=== PATIENT | female | born 1970 | race Caucasian/White ===

== ENCOUNTER 2024-11-15 21:09 | Inpatient (IN) | payer BC, OTHER ==
--- NOTE | 2024-11-15 21:51 | RAD REPORT ---
EXAM: Chest Single View HISTORY: CHEST PAIN COMPARISON: None. FINDINGS: LUNGS/PLEURA: Prominence of the pulmonary interstitium in the lung bases is nonspecific. No definite acute process identified.. MEDIASTINUM: The mediastinal silhouette is within normal limits. CARDIAC: The cardiac silhouette is within normal limits. UPPER ABDOMEN: No significant abnormality. BONES: No acute abnormality. LINES/TUBES/OTHER: N/A IMPRESSION: Some prominence of the basilar interstitial markings without definite edema or consolidative airspace disease.
[2024-11-15] MEDS ORDERED: NITROGLYCERIN 1 GM PKT TD ONE (22:21)
[2024-11-15 22:29] LABS: Absolute Basophils 0.1 K/uL (0-0.5); Absolute Eosinophils 0.3 K/uL (0-0.5); Absolute Lymphocytes (CBC) 2.8 K/uL (0.7-4.9); Absolute Monocytes 0.4 K/uL (0.1-1.3); Absolute Neutrophil 4.9 K/uL (1.8-8.0); Basophils % 0.8 % (0-1.3); Eosinophils % 3.7 % (0-4.4); Hematocrit 42.5 % (36.0-45.0); Hemoglobin 14.1 g/dL (12.0-15.0); Lymphocytes % 32.7 % (15.3-44.8); MCH 28.1 pg (27.0-35.0); MCHC 33.2 g/dL (32.0-36.0); MCV 84.6 fL (80-100); MPV 9.6 fL (7.6-11.3); Monocytes % 4.9 % (3.3-12.3); Neutrophils % 57.9 % (41.7-73.7); Nucleated Red Blood Cells % 0.2 % (0-0); Platelets 260 thou/uL (152-406); RBC Red Blood Cell Count 5.02 M/uL (3.86-4.86); Red Cell Distribution Width 13.4 % (12.1-15.2)
[2024-11-15 22:30] LABS: PTT, Activated Partial Thromb 34.6 SECONDS (24.3-36.9); Protime INR 0.95
[2024-11-15 22:36] LABS: ALT/SGPT 29 U/L (13-56); AST/SGOT 20 U/L (15-37); Albumin 3.2 g/dL (3.4-5.0); Albumin/Globulin Ratio 0.8 (1.1-1.8); Alkaline Phosphatase 94 U/L (45-117); Anion Gap 15.7 mEq/L (5.0-15.0); BUN Blood Urea Nitrogen 20 mg/dL (7-18); Bicarbonate 20 mEq/L (21-32); Bilirubin Total 0.6 mg/dL (0.2-1.0); Globulin 4.1 g/dL (2.3-3.5); Glomerular Filtration Rate 77 ml/min (=/>90); Glucose Level 203 mg/dL (74-106); Magnesium 1.5 mg/dL (1.6-2.4); NT PRO-BNP 131 pg/mL (<125); Potassium 3.7 mEq/L (3.5-5.1); Protein, Total 7.3 g/dL (6.4-8.2); Sodium Level 137 mEq/L (136-145); Troponin High Sensitivity 7.6 pg/mL (<58.9)
--- NOTE | 2024-11-15 22:40 | RAD REPORT ---
EXAMINATION: CT HEAD WITHOUT CONTRAST CLINICAL INDICATION: Female, 53 years old.HEADACHE TECHNIQUE: Axial CT images from the skull base to the vertex without intravenous contrast. Coronal an d sagittal reformatted images were created from the data set. One or more of the following dose reduction techniques were used: Automated exposure control, adjustment of the mA and/or kV according to patient size, and/or iterative reconstruction. Unless otherwise specified, incidental findings do not require dedicated imaging follow-up. [id number]. COMPARISON: No prior exam. FINDINGS: INTRACRANIAL: No acute intracranial hemorrhage. No hydrocephalus. No mass effect or midline shift. Sm all right centrum semiovale lacunar infarct.Small remote appearing left reinoso radiata lacunar infarct. Mild chronic small vessel ischemic changes. VASCULATURE: No visualized abnormalities in the arteries or dural venous sinuses. SCALP/SKULL: No significant soft tissue or osseous abnormalities. SINUSES: The visualized paranasal sinuses and mastoid air cells are predominantly clear. IMPRESSION: No definite acute intracranial abnormality. Probably remote deep white matter lacunar infarcts.
[2024-11-15 22:43] LABS: Bilirubin Direct < 0.2 mg/dL (0-0.2); Bilirubin Indirect, Calculated 0.4 mg/dL (0.2-0.8)
[2024-11-15] MEDS ORDERED: ASPIRIN 325 MG TAB ONE (23:14)
[2024-11-15] MEDS ORDERED: NITROGLYCERIN 0.4 MG/TAB SL ONE (23:14)
--- NOTE | 2024-11-15 23:17 | EDPHYS ---
Physician Documentation [facility] Name: Jaylin Carrera Age: 53 yrs Sex: Female : 1970 Arrival Date: 11/15/2024 Time: 21:09 Bed 4 Private MD: ED Physician Pilo Bowen HPI: 11/15 23:18 This 53 yrs old Female presents to ER via Ambulatory with complaints of Chest Pain, rt High Blood Pressure, Numbness Of Arm, Headache. 23:18 Patient presents to the ED with chest pain rating to left arm as well as a headache. rt Patient states that she had recent changes to her blood pressure medicines but states that blood pressure has been elevated, up to about 190 today. Denies loss of consciousness, other acute complaints at this time, symptoms are moderate in severity, no other aggravating elevating factors. Pain is described as pressure-like in nature.. 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 - Infectious Disease History:: Denies. - Social history:: Smoking status: Patient denies any tobacco usage or history of. - Family history:: not pertinent. ROS: 23:18 Constitutional: Negative for fever, chills, and weight loss, Respiratory: Negative for rt shortness of breath, cough, wheezing, and pleuritic chest pain, Abdomen/GI: Negative for abdominal pain, nausea, vomiting, diarrhea, and constipation, MS/Extremity: Negative for injury and deformity, 23:18 Cardiovascular: Positive for chest pain, Negative for edema, 23:18 Neuro: Positive for headache, Negative for altered mental status, Exam: 23:18 Constitutional: This is a well developed, well nourished patient who is awake, alert, rt and in no acute distress. Head/Face: Normocephalic, atraumatic. Chest/axilla: Normal chest wall appearance and motion. Nontender with no deformity. No lesions are appreciated. Cardiovascular: Regular rate and rhythm with a normal S1 and S2. No gallops, murmurs, or rubs. Normal PMI, no JVD. No pulse deficits. Respiratory: Lungs have equal breath sounds bilaterally, clear to auscultation and percussion. No rales, rhonchi or wheezes noted. No increased work of breathing, no retractions or nasal flaring. Abdomen/GI: Soft, non-tender, with normal bowel sounds. No distension or tympany. No guarding or rebound. No evidence of tenderness throughout. Skin: Warm, dry with normal turgor. Normal color with no rashes, no lesions, and no evidence of cellulitis. MS/ Extremity: Pulses equal, no cyanosis. Neurovascular intact. Full, normal range of motion. 23:18 ECG was reviewed by the Attending Physician. 23:18 Neuro: Speech normal, cranial nerves II through XII intact, strength and sensation intact in upper lower extremities, Vital Signs: 21:22 BP 228 / 119; Pulse 103; Resp 18; Temp 98.1; Pulse Ox 98% ; Weight 98.43 kg; Height 5 cp4 ft. 8 in. ; Pain 5/10; 21:30 BP 186 / 104; Pulse 90; Resp 18; Pulse Ox 97% on R/A; al5 22:03 BP 169 / 87; Pulse 90; Resp 18; Pulse Ox 97% on R/A; al5 22:30 BP 153 / 90; Pulse 90; Resp 18; Pulse Ox 98% on R/A; al5 23:00 BP 159 / 106; Pulse 92; Resp 18; Pulse Ox 97% on R/A; al5 11/16 00:00 BP 155 / 105; Pulse 98; Resp 18; Pulse Ox 96% on R/A; al5 00:30 BP 151 / 89; Pulse 96; Resp 18; Pulse Ox 95% on R/A; al5 01:00 BP 161 / 97; Pulse 92; Resp 18; Pulse Ox 98% on R/A; al5 11/15 21:22 Body Mass Index 32.99 (98.43 kg, 172.72 cm) cp4 11/15 21:22 Pain Scale: Adult cp4 MDM: 11/15 21:16 Medical Screening Exam initiated rt 23:20 Differential diagnosis: IA, hypertensive emergency, CHF, stones, renal dysfunction, rt intracranial hemorrhage. The patient was given aspirin in the Emergency Department. Data reviewed: vital signs, nurses notes, lab test result(s), EKG, radiologic studies. 23:34 Consideration of Admission/Observation Patient was admitted/placed on observation. rt Management of patient was discussed with the following: Hospitalist: Agrees to admit. I considered the following discharge prescriptions or medication management in the emergency department Medications were administered in the Emergency Department. See MAR. Independent interpretation of the following test(s) in the Emergency Department CT Scan: My interpretation is No intracranial hemorrhage syndrome interpretation of CT scan images. Care significantly affected by the following chronic conditions: Hypertension. Counseling: I had a detailed discussion with the patient and/or guardian regarding the historical points, exam findings, and any diagnostic results supporting the discharge/admit diagnosis, lab results, radiology results, the need for further work-up and treatment in the hospital. Response to treatment: the patient's symptoms have markedly improved after treatment. 11/15 21:28 Order name: Basic Metabolic Panel; Complete Time: 22:45 rt 11/15 21:28 Order name: CBC with Diff; Complete Time: 22:45 rt 11/15 21:28 Order name: LFT's; Complete Time: 22:45 rt 11/15 21:28 Order name: Magnesium; Complete Time: 22:45 rt 11/15 21:28 Order name: NT PRO-BNP; Complete Time: 22:45 rt 11/15 21:28 Order name: PT-INR; Complete Time: 22:45 rt 11/15 21:28 Order name: Troponin HS; Complete Time: 22:45 rt 11/15 21:28 Order name: Ptt, Activated; Complete Time: 22:45 rt 11/15 23:51 Order name: Urinalysis w/ reflexes EDMS 11/15 23:51 Order name: CBC with Automated Diff EDMS 11/15 23:51 Order name: CBC with Automated Diff EDMS 11/15 23:51 Order name: Comprehensive Metabolic Panel EDMS 11/15 23:51 Order name: Comprehensive Metabolic Panel EDMS 11/15 23:51 Order name: Troponin High Sensitivity EDMS 11/15 23:51 Order name: Troponin High Sensitivity EDMS 11/15 23:51 Order name: Troponin High Sensitivity EDMS 11/15 23:51 Order name: Troponin High Sensitivity EDMS 11/15 21:28 Order name: XRAY Chest (1 view); Complete Time: 21:51 rt 11/15 21:28 Order name: CT Head Brain wo Cont; Complete Time: 22:45 rt 11/16 00:44 Order name: Chest For Pe Angio EDMS 11/15 21:28 Order name: Cardiac monitoring; Complete Time: 21:56 rt 11/15 21:28 Order name: EKG - Nurse/Tech; Complete Time: :56 rt 11/15 21:28 Order name: IV Saline Lock; Complete Time: 22:12 rt 11/15 21:28 Order name: Labs collected and sent; Complete Time: 22:12 rt 11/15 21:28 Order name: O2 Per Protocol; Complete Time: 21:56 rt 11/15 21:28 Order name: O2 Sat Monitoring; Complete Time: 21:56 rt EC:18 Rate is 92 beats/min. Rhythm is regular, Normal Sinus Rhythm with No ectopy. QRS [place] rt is Normal. MD interval is normal. QRS interval is normal. QT interval is normal. No Q waves. No ST changes noted. Interpreted by me. Administered Medications: 22:59 Not Given (Duplicate Order): nitroglycerinointment 2 % 1 inches Transdermal once rt 23:28 Drug: Nitroglycerin Sublingual 0.4 mg Sublingual once; every five minute if needed x3 al5 Route: Sublingual; 11/16 00:00 Follow up: Response: No adverse reaction ha1 11/15 23:28 Drug: Aspirin PO 325 mg PO once Route: PO; al5 11/16 00:00 Follow up: Response: No adverse reaction ha1 Disposition: 11/15 23:34 Critical Care:. rt Disposition Summary: 11/15/24 23:16 Hospitalization Ordered Notes: Hospitalization Status: Observation rt Provider: Tyron Stewart rt Location: Telemetry/MedSurg (observation) rt Condition: Stable rt Problem: new rt Symptoms: have improved rt Bed/Room Type: Standard rt Room Assignment: 230(11/16/24 00:07) Diagnosis - Hypertensive emergency rt - Chest pain rt Forms: - Medication Reconciliation Form rt - SBAR form rt - Leadership Thank You Letter rt Critical care time excluding procedures: 23:34 Critical care time: Bedside Care: 30 minutes, Consultation: 5 minutes. Total time: 35 rt minutes Signatures: Dispatcher [employer] Pilo Everett MD MD rt April Hood cp4 Aimee Long RN RN al5 [place] Keely Holt RN ha1 Corrections: (The following items were deleted from the chart) : 21:29 BASIC METABOLIC PANEL+C.LAB.BRZ ordered. EDMS EDMS 21:29 CBC+H.LAB.BRZ ordered. EDMS EDMS 21:29 HEPATIC FUNCTION+C.LAB.BRZ ordered. EDMS EDMS : 21:29 MAGNESIUM+C.LAB.BRZ ordered. EDMS EDMS : 21:29 PROBNP+C.LAB.BRZ ordered. EDMS EDMS 21:29 PROTIME (+INR)+COAG.LAB.BRZ ordered. EDMS EDMS 21:29 Troponin High Sensitivity+C.LAB.BRZ ordered. EDMS EDMS 21:29 PTT, ACTIVATED+COAG.LAB.BRZ ordered. EDMS EDMS 21:29 Chest Single View+RAD.RAD.BRZ ordered. EDMS EDMS : 21:29 Head Brain Wo Cont+CT.RAD.BRZ ordered. EDMS EDMS 11/16 00:07 11/15 23:16 rt hw 11/16 00:44 11/15 23:52 Chest For Pe Angio ordered. EDMS EDMS
--- NOTE | 2024-11-15 23:17 | ER ---
Nurse's Notes [facility] Name: Jaylin Carrera Age: 53 yrs Sex: Female : 1970 Arrival Date: 11/15/2024 Time: 21:09 Bed 4 Private MD: Diagnosis: Hypertensive emergency;Chest pain Presentation: 11/15 21:22 Chief complaint: Patient states: hypertension, left arm numbness, headache, shortness cp4 of breath, and chest pain that started at 1500 today. Coronavirus screen: Client denies travel out of the [place] in the last 14 days. At this time, the client does not indicate any symptoms associated with coronavirus-19. Ebola Screen: Patient negative for fever greater than or equal to 101.5 degrees Fahrenheit, and additional compatible Ebola Virus Disease symptoms Patient denies exposure to infectious person. Patient denies travel to an Ebola-affected area in the 21 days before illness onset. No symptoms or risks identified at this time. Initial Sepsis Screen: Does the patient meet any 2 criteria? HR > 90 bpm. No. Patient's initial sepsis screen is negative. Does the patient have a suspected source of infection? No. Patient's initial sepsis screen is negative. Risk Assessment: Do you want to hurt yourself or someone else? Patient reports no desire to harm self or others. Onset of symptoms was November 15, 2024 at 15:00. 21:22 Method Of Arrival: Ambulatory cp4 21:22 Acuity: JERICA 2 cp4 Triage Assessment: 21:24 General: Appears in no apparent distress. uncomfortable, Behavior is calm, cooperative, cp4 appropriate for age. Pain: Complains of pain in chest, head. Cardiovascular: Patient's skin is warm and dry. 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 - Infectious Disease History:: Denies. - Social history:: Smoking status: Patient denies any tobacco usage or history of. - Family history:: not pertinent. Screenin:16 [facility] ED Fall Risk Assessment (Adult) History of falling in the last 3 months, al5 including since admission No falls in past 3 months (0 pts) Confusion or Disorientation No (0 pts) Intoxicated or Sedated No (0 pts) Impaired Gait No (0 pts) Mobility Assist Device Used No (0 pt) Altered Elimination No (0 pt) Score/Fall Risk Level 0 - 2 = Low Risk Oriented to surroundings, Maintained a safe environment, Hourly rounding (assess needs \T\ fall precautionary measures) done. Abuse screen: Denies threats or abuse. Denies injuries from another. Nutritional screening: No deficits noted. Tuberculosis screening: No symptoms or risk factors identified. Assessment: 22:16 General: Appears in no apparent distress. uncomfortable, Behavior is calm, cooperative. al5 Pain: Complains of pain in chest Pain radiates to left arm Pain began 1 hour ago. chest pain began about 3 hours ago. Neuro: Level of Consciousness is awake, alert, obeys commands, Oriented to person, place, time, situation. Cardiovascular: Capillary refill < 3 seconds Patient's skin is warm and dry. Cardiovascular: Reports chest pain. Respiratory: Airway is patent Respiratory effort is even, unlabored, Respiratory pattern is regular, symmetrical. GI: No signs and/or symptoms were reported involving the gastrointestinal system. : No signs and/or symptoms were reported regarding the genitourinary system. EENT: No signs and/or symptoms were reported regarding the EENT system. Derm: Skin is intact, is healthy with good turgor, Skin is pink, warm \T\ dry. normal. Musculoskeletal: No signs and/or symptoms reported regarding the musculoskeletal system. 23:58 Reassessment: Patient appears in no apparent distress at this time. No changes from al5 previously documented assessment. Patient and/or family updated on plan of care and expected duration. Pain level reassessed. Patient is alert, oriented x 3, equal unlabored respirations, skin warm/dry/pink. 11/16 00:41 Reassessment: Patient appears in no apparent distress at this time. No changes from al5 previously documented assessment. Patient and/or family updated on plan of care and expected duration. Pain level reassessed. Patient is alert, oriented x 3, equal unlabored respirations, skin warm/dry/pink. Vital Signs: 11/15 21:22 BP 228 / 119; Pulse 103; Resp 18; Temp 98.1; Pulse Ox 98% ; Weight 98.43 kg; Height 5 cp4 ft. 8 in. ; Pain 5/10; 21:30 BP 186 / 104; Pulse 90; Resp 18; Pulse Ox 97% on R/A; al5 22:03 BP 169 / 87; Pulse 90; Resp 18; Pulse Ox 97% on R/A; al5 22:30 BP 153 / 90; Pulse 90; Resp 18; Pulse Ox 98% on R/A; al5 23:00 BP 159 / 106; Pulse 92; Resp 18; Pulse Ox 97% on R/A; al5 11/16 00:00 BP 155 / 105; Pulse 98; Resp 18; Pulse Ox 96% on R/A; al5 00:30 BP 151 / 89; Pulse 96; Resp 18; Pulse Ox 95% on R/A; al5 01:00 BP 161 / 97; Pulse 92; Resp 18; Pulse Ox 98% on R/A; al5 11/15 21:22 Body Mass Index 32.99 (98.43 kg, 172.72 cm) cp4 11/15 21:22 Pain Scale: Adult cp4 ED Course: 11/15 21:13 Patient arrived in ED. [id number] 21:15 Pilo Bowen MD is Attending Physician. rt 21:24 Triage completed. cp4 21:24 Arm band placed on right wrist. Patient placed in waiting room. cp4 21:47 XRAY Chest (1 view) In Process Unspecified. EDMS 21:56 Aimee Long, BRAYDEN is Primary Nurse. al5 22:16 Patient has correct armband on for positive identification. Bed in low position. Call al5 light in reach. Side rails up X 1. Provided Education on: plan of care. Client placed on continuous cardiac and pulse oximetry monitoring. NIBP monitoring applied. manager monitoring on. 22:16 No provider procedures requiring assistance completed. Inserted saline lock: 22 gauge al5 in left forearm, using aseptic technique. Blood collected. Flushed with 10 mL NS. Patient maintains SpO2 saturation greater than 95% on room air. 22:27 CT Head Brain wo Cont In Process Unspecified. EDMS 23:15 Tyron Stewart MD is Hospitalizing Provider. rt 11/16 01:19 Patient admitted, IV remains in place. ha1 Administered Medications: 11/15 22:59 Not Given (Duplicate Order): nitroglycerinointment 2 % 1 inches Transdermal once rt 23:28 Drug: Nitroglycerin Sublingual 0.4 mg Sublingual once; every five minute if needed x3 al5 Route: Sublingual; 11/16 00:00 Follow up: Response: No adverse reaction ha1 11/15 23:28 Drug: Aspirin PO 325 mg PO once Route: PO; al5 11/16 00:00 Follow up: Response: No adverse reaction ha1 Medication: 11/15 22:16 VIS not applicable for this client. al5 Outcome: 23:16 Decision to Hospitalize by Provider. rt 11/16 01:19 Admitted to Med/surg accompanied by tech, via wheelchair, room 230, with chart, ha1 Condition: stable Instructed on the need for admit, Demonstrated understanding of instructions, 01:21 Patient left the ED. ha1 Signatures: Dispatcher [employer] EDJaylin Mcneal6 Keely Holt, RN RN ha1 Pilo Bowen MD MD rt April Hood cp4 Aimee Long RN RN al5
--- NOTE | 2024-11-15 23:51 | P.HP ---
Certification for Inpatient Patient admitted to: Observation With expected LOS: <2 Midnights Practitioner: I am a practitioner with admitting privileges, knowledge of patient current condition, hospital course, and medical plan of care. Services: Services provided to patient in accordance with Admission requirements found in Title 42 Section 412.3 of the Code of Federal Regulations Patient History Date of Service: 11/16/24 Reason for admission: Chest Pain History of Present Illness: 53 yrs old Female with past medical history of diabetes, hypertension presents with complaints of Chest Pain and high Blood Pressure. Patient states that she had recent changes in the blood pressure medications but still the blood pressure has been elevated up to 190s, denies any loss of consciousness. Chest pain is located retrosternally and radiating to the left arm. No fever or chills. Denies any diaphoresis. Denies any nausea vomiting or diarrhea. At the time of interview patient's pain is better. She also complains of some numbness of the left arm and headache. Patient was assessed in the ER and had a CT of the head which showed no acute changes with remote lacunar infarct, patient is being admitted for further management of chest pain to rule out ACS and accelerated hypertension Allergies No Known Allergies Allergy (Unverified 11/16/24 01:29) Home medications list reviewed: Yes Home Medications: Lisinopril [Zestril] 40 mg PO DAILY 11/16/24 Metformin HCl 1,000 mg PO BID 11/16/24 Metoprolol Succinate [Toprol Xl] 50 mg PO DAILY 11/16/24 Tirzepatide [Mounjaro] 2.5 mg SQ SEECOM 11/16/24 glipiZIDE [Glipizide] 10 mg PO BID 11/16/24 - Past Medical/Surgical History Past Medical History: Reviewed- Non-Contributory -: Hypertension, diabetes Past Surgical History: Reviewed- Non-Contributory - Family History Family History: Reviewed- Non-Contributory - Social History Smoking Status: Never smoker Review of Systems 10-point ROS is otherwise unremarkable Physical Examination - Vital Signs Temperature: 98.1 F Blood Pressure: 228/118 Pulse: 103 Respirations: 18 Pulse Ox (%): 94 - Physical Exam General: Alert, In no apparent distress, Oriented x3 HEENT: Atraumatic, Normocephalic Neck: Supple, JVD not distended Respiratory: Clear to auscultation bilaterally, Normal air movement Cardiovascular: Regular rate/rhythm, Normal S1 S2 Capillary refill: <2 Seconds Gastrointestinal: Soft and benign, W/out hepatosplenomegaly Musculoskeletal: No clubbing, No swelling Integumentary: No rashes Neurological: Normal speech, Normal strength at 5/5 x4 extr, Cranial nerves 3-12 intact Lymphatics: No axilla or inguinal lymphadenopathy - Studies Laboratory Data (last 24 hrs) 11/15/24 11/15/24 11/15/24 21:42 21:42 21:42 WBC 8.40 Hgb 14.1 Hct 42.5 Plt Count 260 PT 10.0 INR 0.95 APTT 34.6 Sodium 137 Potassium 3.7 BUN 20 H Creatinine 0.89 Glucose 203 H Magnesium 1.5 L Total Bilirubin 0.6 AST 20 ALT 29 Alkaline Phosphatase 94 Assessment and Plan - Plan Chest pain to rule out ACS Will trend cardiac enzymes Will monitor telemetry Started on aspirin and statin EKG did not show any acute changes suggestive of ischemia Patient denies any chest pain at the time of interview Will get an echocardiogram Cardiology consult Will get a CT of the chest rule out PE Hypertensive urgency Antihypertensives titrated Continue home medications and titrate as needed Hydralazine as needed Hyperlipidemia Continue statin Diabetes Insulin sliding scale Accu-Chek before every meal and at bedtime Hypomagnesemia On electrolyte replacement protocol GI/DVT prophylaxis Advanced directive full code Discharge Plan: Home Plan to discharge in: 48 Hours - Advance Directives Does patient have a Living Will: No Does patient have a Durable POA for Healthcare: No - Code Status/Comfort Care Code Status: Full Code Time Spent Managing Pts Care (In Minutes): 48
[2024-11-16 01:37] VITALS: BMI 33.4
[2024-11-16] MEDS: HYDRALAZINE HCL 20 MG/ML VIAL IV PRN (01:44)
[2024-11-16 04:48] LABS: Absolute Basophils 0.1 K/uL (0-0.5); Absolute Eosinophils 0.2 K/uL (0-0.5); Absolute Lymphocytes (CBC) 1.6 K/uL (0.7-4.9); Absolute Monocytes 0.5 K/uL (0.1-1.3); Absolute Neutrophil 5.3 K/uL (1.8-8.0); Basophils % 0.7 % (0-1.3); Eosinophils % 2.6 % (0-4.4); Hematocrit 40.2 % (36.0-45.0); Hemoglobin 13.4 g/dL (12.0-15.0); Lymphocytes % 20.9 % (15.3-44.8); MCH 27.9 pg (27.0-35.0); MCHC 33.3 g/dL (32.0-36.0); MPV 9.4 fL (7.6-11.3); Monocytes % 6.6 % (3.3-12.3); Neutrophils % 69.2 % (41.7-73.7); Nucleated Red Blood Cells % 0.1 % (0-0); Platelets 225 thou/uL (152-406); RBC Red Blood Cell Count 4.79 M/uL (3.86-4.86); Red Cell Distribution Width 13.7 % (12.1-15.2)
[2024-11-16] MEDS ORDERED: GLUCAGON 1 MG/VIAL IM PRN (04:48)
[2024-11-16] MEDS: AMLODIPINE 5 MG TAB PO SCH (04:48)
[2024-11-16] MEDS: carvediloL 6.25 MG TAB PO SCH (04:48)
[2024-11-16] MEDS ORDERED: D10W 125 ML IV PRN (04:48)
[2024-11-16 05:10] LABS: Albumin 2.7 g/dL (3.4-5.0); Albumin/Globulin Ratio 0.8 (1.1-1.8); Anion Gap 11.6 mEq/L (5.0-15.0); Bilirubin Total 0.6 mg/dL (0.2-1.0); Globulin 3.6 g/dL (2.3-3.5); Potassium 3.6 mEq/L (3.5-5.1); Protein, Total 6.3 g/dL (6.4-8.2)
[2024-11-16] MEDS: Magnesium Sulfate 2gm IVPB 2 G/50 ML BAG IV ONE (05:50)
--- NOTE | 2024-11-16 08:15 | RAD REPORT ---
EXAM: CT Chest For Pe Angio TECHNIQUE: CT angiogram of the chest was performed following intravenous contrast administration, inc luding sagittal and coronal as well as maximum intensity projection reformats. One or more of the following dose reduction techniques were used: Automated exposure control, adjustment of the mA and k V according to patient size, and iterative reconstruction. Unless otherwise specified, incidental findings do not require dedicated imaging follow-up. INDICATION: [facility] MA[facility] PE protocol Y COMPARISON: 11/15/2024 chest radiograph. FINDINGS: LINES/TUBES: None. PULMONARY ARTERIES: Main pulmonary arteries are normal in caliber. No filling defects within the pul monary arteries to suggest pulmonary embolus. LUNGS AND AIRWAYS: The lungs and central airways are normal without focal abnormality. PLEURA: No effusion or pneumothorax. HEART AND MEDIASTINUM: The visualized thyroid gland is normal. No mediastinal, hilar, or axillary lym phadenopathy. Heart is unremarkable. No pericardial effusion. SOFT TISSUES AND BONES: No acute osseous abnormality. No significant soft tissue finding. UPPER ABDOMEN: Diffuse hepatic parenchymal hypoattenuation suggesting steatosis. IMPRESSION: No evidence of acute central pulmonary emboli. No suspicious intrathoracic findings..
[2024-11-16] MEDS: INSULIN REGULAR (HUMAN) 100 UNIT/ML SQ SCH (08:26)
[2024-11-16] MEDS: ASPIRIN EC 81 MG TAB PO SCH (08:26)
[2024-11-16] MEDS: METOPROLOL XL 50 MG TAB PO SCH (08:27)
[2024-11-16] MEDS: lisinopriL 20 MG TAB PO SCH (08:27)
[2024-11-16] MEDS: ENOXAPARIN 40 MG/0.4 ML SQ SCH (08:27)
[2024-11-16] MEDS: POTASSIUM CL SA 10 MEQ TAB PO ONE (08:27)
[2024-11-16] MEDS: ACETAMINOPHEN 325 MG TABLET PO PRN (08:32)
[2024-11-16] MEDS ORDERED: LOSARTAN POTASSIUM 50 MG TABLET PO SCH (09:00)
--- NOTE | 2024-11-16 09:11 | P.PN ---
Date of Service: 11/16/24 Subjective: Blood pressure high overnight Reports chest pain/dyspnea on exertion ROS: 10 point ROS as noted above, otherwise negative Physical exam GEN: Alert, oriented, NAD HEENT: Normal conjunctiva, sclera anicteric CV: Regular rate and rhythm, no edema Pulm: Nonlabored respirations on room air ABD: Soft, nontender, nondistended MSK: No joint tenderness Integumentary: No rashes Neuro: Normal speech, normal affect Vitals reviewed Assessment: Chest tightness/dyspnea on exertion Hypertensive urgency with underlying primary hypertension Diabetes mellitus type [id number] Plan: Chest tightness/dyspnea on exertion Hypertensive urgency with underlying primary hypertension Recently had her dose increased on her metoprolol succinate and lisinopril Currently taking lisinopril 40 mg daily and metoprolol succinate 50 mg daily Monitor blood pressure throughout hospitalization, adjust medications as necessary First 2 troponins negative Reports over the last month increasing frequency of dyspnea on exertion/tightness Mother has a history of CAD, patient used to smoke and has a history of diabetes and hypertension Has never had catheter echo/stress cardiology to see patient Diabetes mellitus type [id number] ACHS Accu-Chek, sliding scale insulin Recently started on Mounjaro DVT PPX: Lovenox Code status: Mussel Farmer Spent Managing Pts Care (In Minutes): 35
[2024-11-16 11:10] LABS: Magnesium 1.9 mg/dL (1.6-2.4); Troponin High Sensitivity 22.4 pg/mL (<58.9)
[2024-11-16] MEDS: ONDANSETRON 4 MG/2 ML VIAL IV PRN (12:34)
[2024-11-16 21:31] LABS: Specific Gravity 1.022 (1.005-1.030); Sqamous Epithelial <5 /HPF (None Seen); Urine Bacteria None Seen /HPF (<20); Urine Bilirubin NEGATIVE (Negative); Urine Blood Negative (Negative); Urine Clarity Clear (Clear); Urine Color Light-Yellow (Yellow); Urine Culture Reflex Order NOT NEEDED; Urine Glucose 4+ (Over) (Negative); Urine Ketones NEGATIVE (Negative); Urine Microscopic Reflex YN ORDER UMIC; Urine Mucus Slight /HPF (None Seen); Urine Nitrite NEGATIVE (Negative); Urine Protein 2+ (Negative); Urine RBC <5 /HPF (None Seen); Urine Urobilinogen Normal (Normal); Urine WBC <5 /HPF (<5); Urine pH 5.5 (5.0-7.0)
[2024-11-16] MEDS: ATORVASTATIN 40 MG TAB PO SCH (21:44)
[2024-11-17 07:41] VITALS: O2SAT 96
[2024-11-17] MEDS ORDERED: REGADENOSON 0.4 MG/5 ML SYR IV ONE (09:44)
--- NOTE | 2024-11-17 10:51 | RAD REPORT ---
EXAM: Nuclear medicine cardiac perfusion examination with ejection fraction HISTORY: Chest pain CP TECHNIQUE: Rest images: 10.9 mCi technetium 99m sestamibi Stress images: 31.1 mCi of technetium 99m sestamibi COMPARISON: None. FINDINGS: Tomographic images: No fixed or reversible perfusion defects. No finding to suspect hibernating myocardium. Ejection fraction of 68%. EDV: 69 mL ESV: 22 mL LHR: 0.27 TID: 1.1 IMPRESSION: No evidence of stress induced ischemia.
--- NOTE | 2024-11-17 13:06 | P.CNS ---
Date of Consult: 11/17/24 Chief Complaint: Chest Pain History of Present Illness: Patient with PMH of HTN, DM, presented with occasional chest pain, epigastric and lower mid chest, on/off, no other cardiac symptoms. Allergies No Known Allergies Allergy (Unverified 11/16/24 01:29) Home medications list reviewed: Yes Home Medications: Lisinopril [Zestril] 40 mg PO DAILY 11/16/24 Metformin HCl 1,000 mg PO BID 11/16/24 Metoprolol Succinate [Toprol Xl] 50 mg PO DAILY 11/16/24 Tirzepatide [Mounjaro] 2.5 mg SQ SEECOM 11/16/24 glipiZIDE [Glipizide] 10 mg PO BID 11/16/24 - Past Medical/Surgical History Diabetic: Yes -: Hypertension, diabetes -: dm - Social History Place of Residence: Home Review of Systems 10-point ROS is otherwise unremarkable Physical Examination Temp Pulse Resp BP Pulse Ox 98.2 F 100 H 16 146/82 H 96 11/17/24 08:00 11/17/24 08:00 11/17/24 08:00 11/17/24 08:00 11/17/24 08:00 General: Alert, In no apparent distress HEENT: Atraumatic, PERRLA, Mucous membr. moist/pink, EOMI, Sclerae nonicteric Neck: Supple, 2+ carotid pulse no bruit, No LAD, Without JVD or thyroid abnormality Respiratory: Clear to auscultation bilaterally, Normal air movement Cardiovascular: Regular rate/rhythm, Normal S1 S2 Gastrointestinal: Normal bowel sounds, No tenderness Musculoskeletal: No tenderness Integumentary: No rashes Neurological: Normal gait, Normal speech, Normal tone, Normal affect Lymphatics: No axilla or inguinal lymphadenopathy - Problems (1) Chest pain Current Visit: Yes Status: Acute Plan: cardiac enzymes are negative, patient had a stress test that is negative for ischemia. continue to control BP and BS outpatient follow up with cardiology.
[2024-11-17 13:27] VITALS: BP 155/81; TEMP 97.8
--- NOTE | 2024-11-17 14:17 | P.DS ---
Admission Date: 11/16/24 Discharge Date: 11/17/24 Disposition: ROUTINE DISCHARGE Discharge Condition: GOOD Reason for Admission: Chest Pain Consultations: Cardiology:Dr. Booker/Dr. Randall Brief History of Present Illness: 53 yrs old Female with past medical history of diabetes, hypertension presents with complaints of Chest Pain and high Blood Pressure. Patient states that she had recent changes in the blood pressure medications but still the blood pressure has been elevated up to 190s, denies any loss of consciousness. Chest pain is located retrosternally and radiating to the left arm. No fever or chills. Denies any diaphoresis. Denies any nausea vomiting or diarrhea. At the time of interview patient's pain is better. She also complains of some numbness of the left arm and headache. Patient was assessed in the ER and had a CT of the head which showed no acute changes with remote lacunar infarct, patient is being admitted for further management of chest pain to rule out ACS and accelerated hypertension Hospital Course: Patient was admitted to the hospital for chest pain, dyspnea on exertion and elevated blood pressure. She had a CTA of the chest which was negative for PE or any other acute finding. Troponins were negative x 3, no significant events on telemetry. Cardiology was consulted recommend she undergo stress test. Stress test was performed on 11/17 which showed no evidence of stress-induced ischemia. Echocardiogram was also obtained, results are currently pending. additional lab values-CBC within normal limits x 2, creatinine 0.82 GFR 85 sodium 135 potassium 3.6 chloride 105 bicarb 22 glucose in the 200s throughout hospitalization LFTs within normal limits Initially her blood pressure was very elevated in the ER as high as 228/119, her home medications included metoprolol succinate 50 mg and lisinopril 40 mg daily were continued and her blood pressure has improved today has been in the 140s to 150s systolic. Of note her PCP sent a prescription of amlodipine 5 mg daily to her pharmacy before she came to the hospital, she was instructed to meat pickler this medication and begin taking it tomorrow morning. She has appointment follow-up with her primary care doctor on the which she should keep, also recommend following up with cardiology in 1 to 2 weeks. Continue taking other medications as previously prescribed Assessment: Chest tightness/dyspnea on exertion Hypertensive urgency with underlying primary hypertension Diabetes mellitus type [id number] Vital Signs/Physical Exam: Temp Pulse Resp BP Pulse Ox 97.8 F 95 H 16 155/81 H 98 11/17/24 12:00 11/17/24 12:00 11/17/24 12:00 11/17/24 12:00 11/17/24 12:00 General: Alert, In no apparent distress, Oriented x3 HEENT: Atraumatic, PERRLA Neck: Supple, JVD not distended Respiratory: Clear to auscultation bilaterally, Normal air movement Cardiovascular: Regular rate/rhythm, Normal S1 S2 Gastrointestinal: Normal bowel sounds, No tenderness Musculoskeletal: No tenderness Integumentary: No rashes Neurological: Normal speech Laboratory Data at Discharge: WBC 7.60 thou/uL (4.3-10.9) 11/16/24 04:14 Hgb 13.4 g/dL (12.0-15.0) 11/16/24 04:14 Hct 40.2 % (36.0-45.0) 11/16/24 04:14 Plt Count 225 thou/uL (152-406) 11/16/24 04:14 PT 10.0 SECONDS (9.4-12.5) 11/15/24 21:42 INR 0.95 11/15/24 21:42 APTT 34.6 SECONDS (24.3-36.9) 11/15/24 21:42 Sodium 135 mEq/L (136-145) L 11/16/24 04:14 Potassium 3.6 mEq/L (3.5-5.1) 11/16/24 04:14 BUN 20 mg/dL (7-18) H 11/16/24 04:14 Creatinine 0.82 mg/dL (0.55-1.02) 11/16/24 04:14 Glucose 240 mg/dL (74-106) H 11/16/24 04:14 Magnesium 1.9 mg/dL (1.6-2.4) 11/16/24 10:41 Total Bilirubin 0.6 mg/dL (0.2-1.0) 11/16/24 04:14 AST 20 U/L (15-37) 11/16/24 04:14 ALT 25 U/L (13-56) 11/16/24 04:14 Alkaline Phosphatase 81 U/L (45-117) 11/16/24 04:14 Home Medications: Lisinopril [Zestril] 40 mg PO DAILY 11/16/24 Metformin HCl 1,000 mg PO BID 11/16/24 Metoprolol Succinate [Toprol Xl] 50 mg PO DAILY 11/16/24 Tirzepatide [Mounjaro] 2.5 mg SQ SEECOM 11/16/24 glipiZIDE [Glipizide] 10 mg PO BID 11/16/24 Physician Discharge Instructions: Patient was admitted to the hospital for chest pain, dyspnea on exertion and elevated blood pressure. She had a CTA of the chest which was negative for PE or any other acute finding. Troponins were negative x 3, no significant events on telemetry. Cardiology was consulted recommend she undergo stress test. Stress test was performed on 11/17 which showed no evidence of stress-induced ischemia. Echocardiogram was also obtained, results are currently pending. additional lab values-CBC within normal limits x 2, creatinine 0.82 GFR 85 sodium 135 potassium 3.6 chloride 105 bicarb 22 glucose in the 200s throughout hospitalization LFTs within normal limits Initially her blood pressure was very elevated in the ER as high as 228/119, her home medications included metoprolol succinate 50 mg and lisinopril 40 mg daily were continued and her blood pressure has improved today has been in the 140s to 150s systolic. Of note her PCP sent a prescription of amlodipine 5 mg daily to her pharmacy before she came to the hospital, she was instructed to meat pickler this medication and begin taking it tomorrow morning. She has appointment follow-up with her primary care doctor on the which she should keep, also recommend following up with cardiology in 1 to 2 weeks. Continue taking other medications as previously prescribed Diet: AHA Activity: Ad demetrius Followup: Conrad Booker MD [ACTIVE - CAN ADMIT] - 1-2 Weeks John Serra DO [Primary Care Provider] - 1 Week Time spent managing pt's care (in minutes): 41
--- NOTE | 2024-11-19 08:15 | ECHO ---
HEIGHT: 5 ft 8 in WEIGHT: 220 lb 0 oz DATE OF STUDY: 11/17/[address]: Pj Stewart DO 2-DIMENSIONAL: YES M.MODE: YES DOPPLER: YES COLOR FLOW: YES TDS: NO PORTABLE: YES DEFINITY: NO BUBBLE STUDY: NO DIAGNOSIS: CHEST PAIN CARDIAC HISTORY: CATHERIZATION: NO SURGERY: NO PROSTHETIC VALVE: NO PACEMAKER: NO MEASUREMENTS (cm) DIASTOLIC (NORMALS) SYSTOLIC (NORMALS) IVSd 1.1 (0.6-1.2) LA Diam 2.3 (1.9-4.0) LVEF 60-65% LVIDd 3.8 (3.5-5.7) LVIDs 2.0 (2.0-3.5) %FS 46% LVPWd 1.2 (0.6-1.2) Ao Diam 2.5 (2.0-3.7) 2 DIMENSIONAL ASSESSMENT: RIGHT ATRIUM: NORMAL LEFT ATRIUM: NORMAL RIGHT VENTRICLE: NORMAL LEFT VENTRICLE: NORMAL TRICUSPID VALVE: NORMAL MITRAL VALVE: NORMAL PULMONIC VALVE: NORMAL AORTIC VALVE: NORMAL PERICARDIAL EFFUSION: NONE AORTIC ROOT: NORMAL LEFT VENTRICULAR WALL MOTION: NORMAL. DOPPLER/COLOR FLOW: NORMAL. COMMENTS: 1.NORMAL LEFT VENTRICULAR SYSTOLIC FUNCTION, EJECTION FRACTION 60-65%, NORMAL WALL MOTION. 2. NORMAL DIASTOLIC FUNCTION. TECHNOLOGIST: CELESTE KAUFFMAN
--- NOTE | 2024-11-19 08:40 | TREADPHA ---
DX: CHEST PAIN Date of Study: 11/17/24 Ht: 5' 8 " Wt: 220 lb 0 oz Consulting Physician: TOM MEDICATIONS: LOVENOX, APRESOLINE, DEXTROSE, NOVOLIN R, PRINIVIL, TOPROL, ZOFRAN HISTORY: DIABETES MELLITUS, HYPERTENSION, HYPERLIPIDEMIA PHYSICIAL EXAMINATION: RESTING B.P.: 158/90 RESTING H.R.: 94 RESTING EKG: NORMAL SINUS PROTOCOL: LEXISCAN EXERCISE TIME: 3:30 B.P. AT PEAK STRESS: 183/93 IMPRESSION: LEXISCAN INJECTED. CARDIOLITE INJECTED - SEE NUCLEAR MEDICINE REPORT. NO CHEST PAIN. ST RHYTHM - 130S. DIZZY AND SHORT OF REATH WITH HEADACHE.
--- NOTE | 2024-11-20 13:07 | EKG ---
Test Date: 2024-11-15 Test Time: 21:31:19 Line Rider: GRICELDA MEASUREMENT RESULTS: Intervals: Rate: 92 MT: 182 QRSD: 82 QT: 396 QTc: 489 [place]: P: 55 MT: 182 QRS: 56 T: 78 INTERPRETIVE STATEMENTS: Normal sinus rhythm Anterior infarct, age undetermined Abnormal ECG No previous ECG available for comparison Electronically Signed On 11-20-24 13:01:52 DIE PRESS OPERATOR by Conrad Booker
== END 2024-11-17 15:16 | disposition home or self-care (01) | DRG 305 ==
LOC: ER 21:09 → 2ND 23:46 → OBSVTOIN 11-16 16:12
PROVIDERS: ADMIT Family Medicine; ATTEND Hospitalist
DX: I16.0 Hypertensive urgency (principal); E11.9 Type 2 diabetes mellitus without complications; Z79.4 Long term (current) use of insulin; E78.5 Hyperlipidemia, unspecified; E83.42 Hypomagnesemia
CPT/HCPCS: 36415; 70450; 71045; 71275; 78452; 80048; 80053; 80076; 81001; 82947; 83735; 83880; 84484; 85025; 85610; 85730; 93005; 93017; 93306; 99285; A9500; G0378; J0360; J1650; J2405; J2785; J3475; Q9967